=== PATIENT | female | born 1965 | race Caucasian/White ===

== ENCOUNTER 2018-07-12 11:12 | Emergency (ER) | payer OTHER ==
[2018-07-12 11:46] LABS: BASO # 0.1 10^3/uL (0.0-0.2); BASO % 0.8 % (0.0-1.0); EOS # 0.4 10^3/uL (0.0-0.50); EOS % 5.6 % (0.0-3.0); HEMATOCRIT 44.4 % (36.0-47.0); HEMOGLOBIN 14.7 g/dl (12.0-15.5); LYMPH # 2.7 10^3/uL (1.5-4.5); MEAN CORPUSCULAR HEMOGLOBIN 30.6 pg (27.0-33.0); MEAN CORPUSCULAR HGB CONC 33.1 g/dl (32.0-36.5); MEAN CORPUSCULAR VOLUME 92.5 fl (80.0-96.0); MONO # 0.7 10^3/uL (0.0-0.8); MONO % 9.3 % (0.0-5.0); NEUTROPHILS # 3.8 10^3/uL (1.8-7.7); NEUTROPHILS % 48.9 % (36.0-66.0); PLATELET COUNT, AUTOMATED 337 10^3/uL (150-450); WHITE BLOOD COUNT 7.8 10^3/uL (4.0-10.0)
[2018-07-12 11:57] LABS: INR 0.91; PROTHROMBIN TIME 12.3 SECONDS (12.1-14.4)
[2018-07-12 12:22] LABS: ALBUMIN 3.9 GM/DL (3.2-5.2); ALT/SGPT 33 U/L (12-78); BILIRUBIN,DIRECT < 0.1 MG/DL (0.0-0.2); BILIRUBIN,TOTAL 0.6 MG/DL (0.2-1.0); BLOOD UREA NITROGEN 15 MG/DL (7-18); CALCIUM LEVEL 9.2 MG/DL (8.5-10.1); CARBON DIOXIDE LEVEL 26 MEQ/L (21-32); CHLORIDE LEVEL 106 MEQ/L (98-107); CPK CREATINE PHOSPHOKINASE 99 U/L (26-192); CREATININE FOR GFR 0.69 MG/DL (0.55-1.30); GLOMERULAR FILTRATION RATE > 60.0 (>51); GLUCOSE, FASTING 101 MG/DL (70-100); LIPASE 152 U/L (73-393); MB/CK RELATIVE INDEX 1.11 (< OR =4); NT-PRO BNP 47 PG/ML (<125); POTASSIUM SERUM 3.9 MEQ/L (3.5-5.1); SODIUM LEVEL 139 MEQ/L (136-145); THYROID STIMULATING HORMONE 0.657 uIU/ML (0.358-3.740); TOTAL PROTEIN 7.3 GM/DL (6.4-8.2); TROPONIN I < 0.02 NG/ML (< 0.10)
[2018-07-12] MEDS ORDERED: ISOVUE-370 76% 100ML VIAL (Q9967) As Ordered ONE (12:24)
[2018-07-12] MEDS ORDERED: GI COCKTAIL 50ML BTL(HYOSCYAMINE/MAALOX/LIDOCAINE VISCOUS)(1:3:1) PO ONE (12:30)
--- NOTE | 2018-07-12 13:06 | REP ---
AP PORTABLE CHEST: 07/12/2018. Clinical history: Chest pain. Lungs mildly hypoinflated but without definite infiltrate or effusion. CP angles sharply defined. There is no lateral pleural thickening or apical scarring. No pneumothorax. No parenchymal mass or nodule. The heart, mediastinal and hilar contours are normal for age and degree of inflation. Airway and aorta intact. Surgical changes right shoulder with soft tissue calcification suggesting calcific tendinopathy over the greater tuberosity. Impression: 1. Mildly hypoinflated chest, but no acute cardiopulmonary disease. Electronically Signed by Alvaro Rolle MD 07/12/2018 05:11 P
--- NOTE | 2018-07-12 14:27 | REP ---
CT pulmonary angiogram: With IV contrast. History: Factor V. Chest pain. Comparison studies: Comparison is made with today's chest x-ray. Contrast dose: 75 mL of Isovue [address] technique: Helical scanning is acquired and overlapping 1.5 mm and contiguous 3 mm axial images are reformatted. In addition, maximum intensity projection and multiplanar re-formation images are generated in sagittal and coronal imaging projections. CT pulmonary angiographic findings: There is good opacification of the pulmonary arterial tree. There is no CT evidence of pulmonary embolism. There is no evidence of vessel cutoff or filling defect. The thoracic aorta is normal in coarse, caliber and homogeneous in enhancement. No aneurysm or dissection is seen. There is no evidence of pleural or pericardial effusion. Lung flores are essentially clear. There is a minimal zone of plate-like atelectasis in the anterior segment of the right upper lobe. No pulmonary nodule or mass lesion is seen. The visualized upper abdominal structures show no additional abnormality. Bone window settings show no acute bony abnormality. Impression: No CT evidence of pulmonary embolus. No active cardiopulmonary disease. Electronically Signed by Demetrio Nino MD 07/12/2018 06:31 P
[2018-07-12 15:04] LABS: CK-MB VALUE MASS < 1.0 NG/ML (<3.6); CPK CREATINE PHOSPHOKINASE 105 U/L (26-192); MB/CK RELATIVE INDEX 0.95 (< OR =4); TROPONIN I < 0.02 NG/ML (< 0.10)
[2018-07-12 15:15] VITALS: BP 136/83
[2018-07-12] MEDS ORDERED: SUCR1TA PO (15:18)
[2018-07-12] MEDS ORDERED: PRIL20TA2 PO (15:18)
--- NOTE | 2018-07-13 17:36 | ECGEPIP ---
Stationary ECG Study [facility] - ED Test Date: 2018-07-12 Pat Name: KELSI MARSH Department: Room: - Gender: F Enterprise Software Developer: ct : 1965 Requested By: Isabel Bedoya Order Number: [id number] Reading MD: Isabel Bedoya Measurements Intervals [place] Rate: 72 P: 55 SD: 148 QRS: 57 QRSD: 95 T: 42 QT: 384 QTc: 423 Interpretive Statements SINUS RHYTHM WITH SINUS ARRHYTHMIA POSSIBLE LEFT ATRIAL ENLARGEMENT NSTTW ABNORMALITY NO PRIOR FOR COMPARISON Electronically Signed On 07-13-2018 17:36:13 EDT by Isabel Bedoya
--- NOTE | 2018-07-13 17:38 | ECGEPIP ---
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
--- NOTE | 2018-07-13 17:41 | ECGEPIP ---
Stationary ECG Study [facility] - ED Test Date: 2018-07-12 Pat Name: KELSI MARSH Department: Room: - Gender: F Vocal Teacher: AMINTA : 1965 Requested By: KWADWO Montalvo Order Number: [id number] Reading MD: Isabel Bedoya Measurements Intervals [place] Rate: 56 P: 25 [place]: 150 QRS: 55 QRSD: 92 T: 41 QT: 431 QTc: 418 Interpretive Statements SINUS BRADYCARDIA NSTTW ABNORMALITY SIMILAR 07/12/18 11:53 Electronically Signed On 07-13-2018 17:41:20 EDT by Isabel Bedoya
== END 2018-07-12 16:01 | disposition home or self-care (01) ==
LOC: M ED 11:12
DX: K20.9 Esophagitis, unspecified (principal); R07.89 Other chest pain; E11.9 Type 2 diabetes mellitus without complications; I10 Essential (primary) hypertension; E78.5 Hyperlipidemia, unspecified; D68.59 Other primary thrombophilia
CPT/HCPCS: 71045; 71275; 80048; 80076; 82550; 82553; 83690; 83880; 84443; 84484; 85025; 85610; 93005; 93041; 94760; 99285; Q9967